=== PATIENT | male | born 1980 | race African-American/Black ===

== ENCOUNTER 2018-01-20 08:34 | Emergency (ER) | payer SELFPAY ==
[~2018-01-20] VITALS: Ht 198.1 cm; Wt 114.0 kg
[2018-01-20] MEDS ORDERED: LISI-604 PO (08:51)
[2018-01-20 09:28] LABS: BASOPHILS % 0.4 % (0.0-2.0); EOSINOPHILS % 0.1 % (0.0-5.0); HEMATOCRIT. 36.9 % (42.0-52.0); HEMOGLOBIN. 12.4 g/dL (14.0-18.0); MEAN CORPUSCULAR HEMOGLOBIN 26.2 pg (28.0-32.0); MEAN CORPUSCULAR VOLUME 77.9 fL (80.0-94.0); MEAN PLATELET VOLUME 8.9 fl (7.4-10.4); MONOCYTES % 9.2 % (2.0-8.0); NEUTROPHILS % 75.3 % (40.0-76.0); PLATELET 192 x1000/uL (130-400); RED BLOOD CELL COUNT 4.73 mill/uL (4.7-6.1); RED CELL DISTRIBUTION WIDTH 14.3 % (11.6-14.6)
[2018-01-20 09:36] LABS: CHLORIDE 102 mEq/L (98-107)
[2018-01-20 11:00] VITALS: BP 165/97
== END 2018-01-20 11:20 | disposition home or self-care (01) ==
LOC: ER 09:36
DX: B34.9 Viral infection, unspecified (principal); I10 Essential (primary) hypertension
CPT/HCPCS: 36415; 71045; 80053; 85025; 87070; 87430; 99285

== ENCOUNTER 2019-03-28 19:46 | Emergency (ER) | payer MEDICAID ==
[~2019-03-28] VITALS: Ht 198.1 cm; Wt 115.0 kg
[~2019-03-28 19:46] MED LIST: LISI-604 PO
[2019-03-28] MEDS ORDERED: ACETAMINOPHEN 325MG TABLET PO STA (20:14)
[2019-03-28] MEDS ORDERED: SODIUM CHLORIDE 0.9% 1000ML BAG (SEPSIS BOLUS) IV ONE (20:15)
[2019-03-28] MEDS ORDERED: VANCOMYCIN 1 G PREMIX 200 ML IV ONE (20:15)
[2019-03-28] MEDS ORDERED: PIPERACILLIN/TAZ 3.375G PREMIX 50 ML IV ONE (20:15)
[2019-03-28] MEDS ORDERED: KETOROLAC 15MG/ML VIAL IV ONE (20:15)
[2019-03-28 20:36] LABS: BASOPHILS % 0.6 % (0.0-2.0); EOSINOPHILS % 0.1 % (0.0-5.0); HEMATOCRIT. 37.1 % (42.0-52.0); HEMOGLOBIN. 12.8 g/dL (14.0-18.0); LYMPHOCYTES % 12.9 % (20.0-50.0); MEAN CORPUSCULAR HEMOGLOBIN 26.6 pg (28.0-32.0); MEAN CORPUSCULAR VOLUME 77.1 fL (80.0-94.0); MEAN PLATELET VOLUME 8.9 fl (7.4-10.4); NEUTROPHILS % 80.4 % (40.0-76.0); PLATELET 230 x1000/uL (130-400); RED BLOOD CELL COUNT 4.81 mill/uL (4.7-6.1); RED CELL DISTRIBUTION WIDTH 15.4 % (11.6-14.6)
[2019-03-28 20:39] LABS: CHLORIDE 101 mEq/L (98-107)
[2019-03-28 21:34] LABS: CLARITY URINE CLEAR (CLEAR); COLOR URINE YELLOW (YELLOW); KETONES URINE NEGATIVE (NEGATIVE); LEUKOCYTE ESTERASE URINE NEGATIVE (NEGATIVE); NITRITE URINE NEGATIVE (NEGATIVE); OCCULT BLOOD URINE NEGATIVE (NEGATIVE); PH URINE 6.5 (4.5-8.0); PROTEIN URINE NEGATIVE (NEGATIVE); SPECIFIC GRAVITY URINE 1.008 (1.005-1.030)
[2019-03-28 22:56] LABS: PROTHROMBIN TIME 10.6 sec (9.6-11.0)
[2019-03-28 23:33] VITALS: BP 145/75
== END 2019-03-28 23:34 | disposition home or self-care (01) ==
LOC: ER 19:46
DX: J06.9 Acute upper respiratory infection, unspecified (principal); E11.65 Type 2 diabetes mellitus with hyperglycemia; R74.0 Nonspecific elevation of levels of transaminase and lactic acid dehydrogenase [LDH]; I10 Essential (primary) hypertension; R00.0 Tachycardia, unspecified; E78.00 Pure hypercholesterolemia, unspecified
CPT/HCPCS: 36415; 71045; 80053; 81003; 82962; 83605; 83880; 84145; 84484; 85025; 85610; 87040; 87086; 93005; 96365; 96366; 96368; 96375; 99284; J1885; J2543; J3370; J7030